=== PATIENT | female | born 2000 | race Caucasian/White ===

== ENCOUNTER 2022-03-17 16:38 | Emergency (ER) | payer OTHER ==
[2022-03-17 17:36] LABS: HEMOGLOBIN 12.6 gm/dl (12.3-15.3); RED BLOOD COUNT 4.55 M/UL (4.00-5.10); WHITE BLOOD COUNT 10.5 K/UL (4.5-11.0)
[2022-03-17 17:56] LABS: BUN/CREATININE RATIO 14 (0-10)
[2022-03-17] MEDS ORDERED: REGLAN10 MG PO (21:42)
[2022-03-17] MEDS ORDERED: BENTYL 20MG TAB20 MG PO (21:42)
== END 2022-03-17 22:10 | disposition home or self-care (01) ==
LOC: ER1 16:38
PROVIDERS: Nurse Practitioner
DX: O99.281 Endocrine, nutritional and metabolic diseases complicating pregnancy, first trimester (principal); O21.9 Vomiting of pregnancy, unspecified; Z3A.01 Less than 8 weeks gestation of pregnancy; Z88.1 Allergy status to other antibiotic agents; Z79.899 Other long term (current) drug therapy
CPT/HCPCS: 0240U; 80053; 81001; 84702; 85025; 87086; 96360; 99284

== ENCOUNTER 2022-04-04 16:29 | Emergency (ER) | payer OTHER ==
[~2022-04-04 16:29] MED LIST: BENTYL 20MG TAB20 MG PO; REGLAN10 MG PO
[2022-04-04 17:58] LABS: HEMOGLOBIN 12.4 gm/dl (12.3-15.3); RED BLOOD COUNT 4.53 M/UL (4.00-5.10)
[2022-04-04 18:33] LABS: BUN/CREATININE RATIO 11 (0-10)
[2022-04-04] MEDS ORDERED: PHENERGAN 12.12.5 MG PR (20:55)
== END 2022-04-04 21:11 | disposition home or self-care (01) ==
LOC: ER1 16:29
PROVIDERS: Family Medicine
DX: O21.9 Vomiting of pregnancy, unspecified (principal); Z88.1 Allergy status to other antibiotic agents; Z3A.09 9 weeks gestation of pregnancy
CPT/HCPCS: 80053; 81001; 85025; 96374; 99284; J2550